=== PATIENT | female | born 1985 | race Caucasian/White ===

== ENCOUNTER → 2016-07-20 | Outpatient (REF) | payer BC | LOC: M LAB REF 12:32 | PROVIDERS: ATTEND Physician Assistant | DX: N39.0 Urinary tract infection, site not specified (principal) ==

== ENCOUNTER → 2016-12-14 | Outpatient (CLI) | payer BC ==
[~2016-12-14] MED LIST: E-Z-GAS II EFFERVESCENT PACKET (SODIUM BICARB./CITRIC ACID/SIMETHICONE) As Ordered ONE; E-Z-HD 98% w/w 340GM SUSP BTL As Ordered ONE; E-Z-PAQUE 96% w/w SUSP 176GM BTL As Ordered ONE; NO MEDICATIONS
--- NOTE | 2016-12-14 17:09 | REP ---
Esophagram The procedure was performed under the direct supervision of Dr. Kramer. The images were reviewed with Dr. Kramer. A single view PA chest x-ray is submitted as a machine container washer film. The superior mediastinal structures are midline. The heart size is within normal limits. The lungs are clear. Liquid barium and gas producing granules were given in the erect position as well as liquid barium in the prone oblique positions in order to perform a double contrast esophagram examination. The oral and pharyngeal stages of deglutition are unremarkable. Esophageal transport is prompt and efficient and there is no esophagitis, stricture, or mucosal ring. There is a sliding type hiatal hernia identified. Gastro esophageal reflux is not identified on the examination. Impression: There is a sliding type hiatal hernia, otherwise unremarkable double contrast examination. 49 seconds of fluoro time was utilized for this procedure. Reviewed by FRANCIS Levine 12/14/2016 04:23 PSigned by Buck Kramer MD 12/14/2016 05:01 P
== END ==
LOC: M RAD 08:21
PROVIDERS: ATTEND Internal Medicine Gastroenterology
DX: K92.0 Hematemesis (principal)

== ENCOUNTER 2016-12-30 13:10 | Outpatient (CLI) | payer BC ==
[~2016-12-30] VITALS: Ht 160 cm; Wt 65.8 kg
[~2016-12-30 13:10] MED LIST changes: -E-Z-GAS II EFFERVESCENT PACKET (SODIUM BICARB./CITRIC ACID/SIMETHICONE) As Ordered ONE; -E-Z-HD 98% w/w 340GM SUSP BTL As Ordered ONE; -E-Z-PAQUE 96% w/w SUSP 176GM BTL As Ordered ONE
[2016-12-30] MEDS ORDERED: NS 1,000 ML IV ONE (13:15)
[2016-12-30] MEDS ORDERED: fentaNYL 100 MCG/2 ML INJECTION (J3010) As Ordered ONE (14:38)
[2016-12-30] MEDS ORDERED: PROPOFOL 200 MG/20 ML VIAL As Ordered ONE (14:49)
[2016-12-30] MEDS ORDERED: LIDOCAINE 2% INJ 100 MG/5 ML SDV (FOR ANES.) As Ordered ONE (14:49)
--- NOTE | 2016-12-30 14:58 | ROOR ---
Patient Name: Denae Bales Procedure Date: 12/30/2016 2:32 PM Date of : 1985 Age: 31 Room: [facility] Gender: Female Note Status: Finalized Procedure: Upper GI endoscopy Indications: Suspected gastro-esophageal reflux disease, Nausea with vomiting, Persistent vomiting of unknown cause Providers: Oleksandr Justice MD Referring MD: JHONNY Abbott Requesting Provider: Medicines: Monitored Anesthesia Care Complications: No immediate complications. Procedure: Pre-Anesthesia Assessment: - Prior to the procedure, a History and Physical was performed, and patient medications and allergies were reviewed. The patient is competent. The risks and benefits of the procedure and the sedation options and risks were discussed with the patient. All questions were answered and informed consent was obtained. Patient identification and proposed procedure were verified by the physician, the nurse and the packerhead machine operator in the procedure room. Mental Status Examination: alert and oriented. Airway Examination: normal oropharyngeal airway and neck mobility. Respiratory Examination: clear to auscultation. CV Examination: normal. Prophylactic Antibiotics: The patient does not require prophylactic antibiotics. Prior Anticoagulants: The patient has taken no previous anticoagulant or antiplatelet agents. ASA Grade Assessment: II - A patient with mild systemic disease. After reviewing the risks and benefits, the patient was deemed in satisfactory condition to undergo the procedure. The anesthesia plan was to use monitored anesthesia care (MAC). Immediately prior to administration of medications, the patient was re-assessed for adequacy to receive sedatives. The heart rate, respiratory rate, oxygen saturations, blood pressure, adequacy of pulmonary ventilation, and response to care were monitored throughout the procedure. The physical status of the patient was re-assessed after the procedure. The Endoscope was introduced through the mouth, and advanced to the second part of duodenum. The upper GI endoscopy was accomplished without difficulty. The patient tolerated the procedure well. Findings: LA Grade A (one or more mucosal breaks less than 5 mm, not extending between tops of 2 mucosal folds) esophagitis with no bleeding was found at the gastroesophageal junction. Biopsies were taken with a cold forceps for histology. Verification of patient identification for the specimen was done by the physician and nurse using the patient's name, date and medical record number. Estimated blood loss was minimal. Diffuse moderate inflammation characterized by congestion (edema), granularity and linear erosions was found in the gastric body and in the gastric antrum. Biopsies were taken with a cold forceps for histology. The duodenal bulb and second portion of the duodenum were normal. Impression: - LA Grade A reflux esophagitis. Biopsied. - Gastritis. Biopsied. - Normal duodenal bulb and second portion of the duodenum. Recommendation: - Patient has a contact number available for emergencies. The signs and symptoms of potential delayed complications were discussed with the patient. Return to normal activities tomorrow. Written discharge instructions were provided to the patient. - Resume previous diet. - Continue present medications. - Follow an antireflux regimen. - Use Protonix (pantoprazole) 40 mg PO daily for 12 weeks. - Return to GI clinic as previously scheduled. - Return to primary care physician. Oleksandr Justice MD Oleksandr Justice MD 12/30/2016 2:57:21 PM This report has been signed electronically. Number of Addenda: 0 Note Initiated On: 12/30/2016 2:32 PM Estimated Blood Loss: Estimated blood loss was minimal.
[2016-12-30 15:25] VITALS: BP 120/74
== END 2016-12-30 15:28 | disposition home or self-care (01) ==
LOC: M OPP 13:10
PROVIDERS: ATTEND Internal Medicine Gastroenterology
DX: R11.2 Nausea with vomiting, unspecified (principal); K22.70 Barrett's esophagus without dysplasia; K21.0 Gastro-esophageal reflux disease with esophagitis; K29.70 Gastritis, unspecified, without bleeding; B96.81 Helicobacter pylori [H. pylori] as the cause of diseases classified elsewhere; K44.9 Diaphragmatic hernia without obstruction or gangrene; D64.9 Anemia, unspecified; N80.9 Endometriosis, unspecified; F17.210 Nicotine dependence, cigarettes, uncomplicated
CPT/HCPCS: 43239; 88305; J3010

== ENCOUNTER 2017-12-16 11:49 | Emergency (ER) | payer BC ==
[2017-12-16 12:17] LABS: KETONE, URINE AUTO RFX NEGATIVE (NEGATIVE); LEUKOCYTE ESTERASE UR AUTO RFX NEGATIVE (NEGATIVE); MUCUS, URINE RFX SMALL (NEGATIVE); NITRITE, URINE AUTO RFX NEGATIVE (NEGATIVE); RBC, URINE AUTO RFX 1 /HPF (0-3); SPECIFIC GRAVITY UR AUTO RFX 1.006 (1.002-1.035); SQUAM EPITHELIAL CELL UR AURFX 3 /HPF (0-6); WBC, URINE AUTO RFX 0 /HPF (0-3)
[2017-12-16 13:34] LABS: BASO % 0.4 % (0.0-1.0); EOS # 0.2 10^3/uL (0.0-0.50); HEMOGLOBIN 12.7 g/dl (12.0-15.5); IMMATURE GRANULOCYTE % 0.3 % (0-3.0); LYMPH # 2.1 10^3/uL (1.5-4.5); LYMPH % 22.1 % (24.0-44.0); MEAN CORPUSCULAR HEMOGLOBIN 29.2 pg (27.0-33.0); MEAN CORPUSCULAR HGB CONC 32.6 g/dl (32.0-36.5); MEAN CORPUSCULAR VOLUME 89.7 fl (80.0-96.0); MONO # 0.7 10^3/uL (0.0-0.8); MONO % 7.6 % (0.0-5.0); NEUTROPHILS # 6.5 10^3/uL (1.8-7.7); NEUTROPHILS % 67.6 % (36.0-66.0); PLATELET COUNT, AUTOMATED 243 10^3/uL (150-450); RED BLOOD COUNT 4.35 10^6/uL (4.00-5.40); RED CELL DISTRIBUTION WIDTH 14.8 % (11.5-14.5); WHITE BLOOD COUNT 9.6 10^3/uL (4.0-10.0)
[2017-12-16 14:02] LABS: AMYLASE 35 U/L (25-115); ANION GAP 8 MEQ/L (8-16); BLOOD UREA NITROGEN 8 MG/DL (7-18); CALCIUM LEVEL 8.8 MG/DL (8.5-10.1); CARBON DIOXIDE LEVEL 24 MEQ/L (21-32); CHLORIDE LEVEL 109 MEQ/L (98-107); CREATININE FOR GFR 0.86 MG/DL (0.55-1.30); GLOMERULAR FILTRATION RATE > 60.0 (>60); GLUCOSE, FASTING 74 MG/DL (70-100); LIPASE 183 U/L (73-393); SODIUM LEVEL 141 MEQ/L (136-145)
[2017-12-16 15:22] LABS: CHLAMYDIA DNA AMPLIFICATION NEGATIVE (NEGATIVE); GC DNA AMPLIFICATION NEGATIVE (NEGATIVE)
[2017-12-19 10:05] LABS: PROLACTIN 10.3 NG/ML
== END 2017-12-16 15:03 | disposition home or self-care (01) ==
LOC: M ED 11:49
DX: N83.292 Other ovarian cyst, left side (principal); N91.5 Oligomenorrhea, unspecified; R10.9 Unspecified abdominal pain; R51 Headache; Z72.0 Tobacco use
CPT/HCPCS: 76856

== ENCOUNTER 2020-01-08 11:50 | Emergency (ER) | payer BC ==
[~2020-01-08] VITALS: Ht 157.5 cm; Wt 72.7 kg
[~2020-01-08 11:50] MED LIST changes: +IBUP80TA PO
[2020-01-08] MEDS ORDERED: TRAZ-252 (11:59)
[2020-01-08] MEDS ORDERED: VENL50TA2 (11:59)
[2020-01-08 13:13] LABS: BASO # 0.1 10^3/uL (0.0-0.2); BASO % 0.5 % (0.0-1.0); EOS # 0.1 10^3/uL (0.0-0.5); EOS % 1.2 % (0.0-3.0); HEMATOCRIT 35.3 % (36.0-47.0); HEMOGLOBIN 11.1 g/dl (12.0-15.5); LYMPH # 2.5 10^3/uL (1.5-5.0); LYMPH % 22.5 % (24.0-44.0); MEAN CORPUSCULAR HEMOGLOBIN 25.7 pg (27.0-33.0); MEAN CORPUSCULAR HGB CONC 31.4 g/dl (32.0-36.5); MEAN CORPUSCULAR VOLUME 81.7 fl (80.0-96.0); MONO # 0.8 10^3/uL (0.0-0.8); MONO % 7.1 % (0.0-5.0); NEUTROPHILS # 7.7 10^3/uL (1.5-8.5); NEUTROPHILS % 68.3 % (36.0-66.0); PLATELET COUNT, AUTOMATED 349 10^3/uL (150-450); RED BLOOD COUNT 4.32 10^6/uL (4.00-5.40); WHITE BLOOD COUNT 11.3 10^3/uL (4.0-10.0)
[2020-01-08 13:57] LABS: ALBUMIN 3.9 GM/DL (3.2-5.2); ALT/SGPT 25 U/L (12-78); BILIRUBIN,DIRECT < 0.1 MG/DL (0.0-0.2); BILIRUBIN,TOTAL 0.3 MG/DL (0.2-1.0); BLOOD UREA NITROGEN 10 MG/DL (7-18); CALCIUM LEVEL 9.2 MG/DL (8.5-10.1); CARBON DIOXIDE LEVEL 26 MEQ/L (21-32); CHLORIDE LEVEL 106 MEQ/L (98-107); CREATININE FOR GFR 0.85 MG/DL (0.55-1.30); GLOMERULAR FILTRATION RATE > 60.0 (>60); GLUCOSE, FASTING 88 MG/DL (70-100); LIPASE 132 U/L (73-393); POTASSIUM SERUM 4.4 MEQ/L (3.5-5.1); SODIUM LEVEL 138 MEQ/L (136-145); TOTAL PROTEIN 7.5 GM/DL (6.4-8.2)
[2020-01-08] MEDS ORDERED: PANTOPRAZOLE 40MG VIAL (C9113 PER 1) IV ONE (14:00)
[2020-01-08] MEDS ORDERED: NS 1,000 ML IV SCH (14:00)
[2020-01-08 14:01] LABS: INR 0.93; PROTHROMBIN TIME 12.7 SECONDS (12.5-14.3)
[2020-01-08 14:02] LABS: PARTIAL THROMBOPLASTIN TIME 29.8 SECONDS (24.2-38.5)
[2020-01-08] MEDS ORDERED: GASTROGRAFIN SOLUTION 30ML (Q9963) As Ordered ONE (14:07)
[2020-01-08] MEDS: GASTROGRAFIN SOLUTION 30ML PO SCH ×2 (14:17→14:47)
[2020-01-08] MEDS ORDERED: ISOVUE-370 76% 100ML VIAL As Ordered ONE (16:15)
--- NOTE | 2020-01-08 16:51 | REPVR ---
PROCEDURE INFORMATION: Exam: CT Abdomen And Pelvis With Contrast Exam date and time: 01/08/2020 4:24 PM Age: 34 years old Clinical indication: Other: Gi bleed TECHNIQUE: Imaging protocol: Computed tomography of the abdomen and pelvis with intravenous contrast. Radiation optimization: All CT scans at this facility use at least one of these dose optimization techniques: automated exposure control; mA and/or kV adjustment per patient size (includes targeted exams where dose is matched to clinical indication); or iterative reconstruction. Contrast material: ISOVUE 370; Contrast volume: 100 ml; Contrast route: INTRAVENOUS (IV); COMPARISON: US PELVIC NON-OB COMPLETE 12/16/2017 1:11 PM FINDINGS: Heart: Minimal pericardial effusion. Liver: Normal. No mass. Gallbladder and bile ducts: Normal. No calcified stones. No ductal dilation. Pancreas: Normal. No ductal dilation. Spleen: Normal. No splenomegaly. Adrenals: Normal. No mass. Kidneys and ureters: Streak artifact from high-density contrast in the right colon partially obscures portions of the right renal cortex. Stomach and bowel: High attenuation contrast in the mid small bowel and abdominal colon may limit sensitivity for active bleeding. Appendix: The vermiform appendix is normal. Intraperitoneal space: Unremarkable. No free air. No significant fluid collection. Vasculature: Calcified phleboliths are present in the lower pelvis bilaterally. Lymph nodes: No enlarged lymph nodes. Urinary bladder: Unremarkable as visualized. Reproductive: Left ovarian 25 mm marginally enhancing physiologic follicle. Bones/joints: Bilateral L5 spondylolysis. Soft tissues: Unremarkable. IMPRESSION: 1. Limitations as above. 2. No acute abdominal or pelvic abnormality identified. 3. Minimal pericardial effusion. Electronically signed by: Nba Chaidez On 01/08/2020 16:51:33 PM
[2020-01-08 16:56] VITALS: BP 127/68
[2020-01-08] MEDS ORDERED: PROT1TAB2 PO (17:11)
[2020-01-08] MEDS ORDERED: CARA1TAB6 PO (17:11)
--- NOTE | 2020-01-10 16:40 | ED PDOC ---
Post-Departure Follow-Up babak urban fxed formal report of ct abd/p for fu Rl Nunes MD Jan 10, 2020 16:40
== END 2020-01-08 17:43 | disposition home or self-care (01) ==
LOC: M ED 11:50
DX: K29.70 Gastritis, unspecified, without bleeding (principal); K92.0 Hematemesis; Z79.899 Other long term (current) drug therapy
CPT/HCPCS: 36415; 74177; 80048; 80076; 81001; 83690; 84702; 85025; 85610; 85730; 96361; 96374; 99284; C9113; Q9967

== ENCOUNTER → 2020-09-17 | Outpatient (CLI) | payer BC ==
[~2020-09-17] MED LIST changes: +CARA1TAB6 PO; +PROT1TAB2 PO; +TRAZ-252; +VENL50TA2
--- NOTE | 2020-09-21 14:25 | SLEEPCENT ---
NOCTURNAL POLYSOMNOGRAPHY DATE: 09/17/2020 ORDERED BY: WEI Harris Nocturnal polysomnography was performed for evaluation of sleep physiology in this patient with a history of nonrestorative sleep. 8 hours and 11 minutes of data were reviewed. There were 447.5 minutes of sleep identified. Sleep latency was normal at 9.5 minutes. REM latency was normal at 68.5 minutes. Sleep architecture was good with six REM cycles. Overall sleep efficiency was 93%. The electrocardiogram showed a sinus rhythm throughout with an average heart rate of 68 beats per minute; rate range 50 to 80. EEG showed normal waveforms for wake and sleep. There were 21 respiratory events identified of 10 seconds in duration or greater for an apnea-hypopnea index within normal limits at 2.8. The events were primarily hypopneic. Some snoring was also appreciated. Respiratory related arousals occurred only 1.3 times per hour and some activity was appreciated in the limb leads, but no trains of events. Limb movement arousal index was only 5.4. IMPRESSION: Normal nocturnal polysomnography with snoring.
== END ==
LOC: M SLEEP 20:00
PROVIDERS: ATTEND Nurse Practitioner Family
DX: R06.83 Snoring (principal)

== ENCOUNTER → 2020-11-17 | Outpatient (CLI) | payer BC ==
--- NOTE | 2020-11-18 15:55 | SLEEPCENT ---
DATE: 11/17/2020 ORDERED BY: Laxmi Simmons Nocturnal polysomnography was performed for re-evaluation of sleep physiology in this patient with persistent symptoms and previous testing revealing only snoring. There was 8 hours and 57 minutes of data reviewed. There was 426 minutes of sleep identified. Sleep latency was mildly prolonged at 38 minutes. REM latency also prolonged at 185 minutes. Sleep architecture once established was good. There were four REM cycles noted. Overall sleep efficiency 80%. The electrocardiogram showed a sinus rhythm with an average heart rate of 65 beats per minute. Rate ranged 55-80. EEG showed essentially normal waveforms for wake and sleep. No focal events were identified. There were 57 respiratory events identified of 10 seconds in duration or greater for an apnea-hypopnea index on this occasion of 8. The events seen were obstructive, not exclusive to sleep stage, though REM clustering was appreciated. There was no correlation with body position. Arousals from respiratory events occurred 2.4 times per hour, and there were oxygen desaturations below 90%. Limb movements were seen in the EMG leads but only one train of 30 events. Limb movement arousal index 4.1. Nocturnal polysomnography was followed by multiple sleep latency testing. Four nap opportunities were offered at 2-hour intervals. Sleep was appreciated on 4/4 nap opportunities with a mean sleep latency of 1.4 minutes. There were REM sleep onsets on three of four nap opportunities. IMPRESSION: 1. Obstructive sleep apnea syndrome (G47.31). Apnea-hypopnea index 8. 2. Excessive daytime somnolence with sleep onset REM periods (mean sleep latency 1.4 minutes). RECOMMENDATION: The patient should be encouraged to return to the sleep disorder center for pressure therapy to address the obstructive sleep apnea syndrome. In the interim, alcohol and sedative avoidance should be practiced and caution exercised during the operation of motor vehicles. Given the findings on multiple sleep latency testing, close clinical followup is recommended to be certain the excessive somnolence and sleep onset REM periods identified do not represent a second sleep pathology. ARI
== END ==
LOC: M SLEEP 20:00
PROVIDERS: ATTEND Nurse Practitioner Family
DX: R40.0 Somnolence (principal); G47.31 Primary central sleep apnea

== ENCOUNTER → 2020-12-02 | Outpatient (CLI) | payer BC | LOC: M LAB 08:46 | PROVIDERS: ATTEND Nurse Practitioner Family | DX: G47.419 Narcolepsy without cataplexy (principal) ==